=== PATIENT | female | born 1980 | race American Indian/Alaskan Native ===

== ENCOUNTER 2018-03-26 08:01 | Day surgery (SDC) | payer BC ==
[~2018-03-26 08:01] MED LIST: DIPRIVAN 10 MG/ML IV ONE; NACL 0.9% 1000 ML 1,000 ML IV SCH; WATER FOR IRRIG STERILE IR ONE; WATER FOR IRRIG STERILE ONE; XYLOCAINE 2% INFILTRATI ONE; ePHEDrine 50 MG/5 ML-0.9% NACL IV ONE
[2018-03-26] MEDS ORDERED: DIPRIVAN 10 MG/ML IV ONE ×2 (08:59→09:01)
[2018-03-26 10:04] VITALS: BP 119/77
--- NOTE | 2018-03-26 12:01 | Procedure Note ---
Date of procedure: 03/26/18 Pre-op diagnosis: Iron deficency anemia Post-op diagnosis: same Procedure: 1) EGD 2) Colonoscopy to cecum Description of procedure: Pt was positioned left side down. MAC was administered. Bite block was placed between her incisors. Endoscope was introduced into the oropharynx and the esophagus intubated under direct vision. Examination of the esophagus, stomach and 1st and 2nd portions of the duodenum was performed. This included a retroflexed view of the GE junction and fundus. No source of the pt's anemia was found. Insufflated air was aspirated and the scope was withdrawn. The GI stretcher was re-positioned and the colonoscope was inserted into the pt' s rectum. The scope was advanced retrograde while directly visualizing the colon lumen. The prep was marginal with portions of the colon not seen b/o residual liquid and semi-solid stool. Once the cecum was identified, the scope was slowly withdrawn with careful circumferential visualization of the colonic lumen. Again, no source of the pt's anemia was identified. A retroflexed view of the distal rectum was performed prior to withdrawing the scope and this too was unrevealing. Pt tolerated both procedures well. She was recovered in the GI suite. Findings: Normal EGD and colonoscopy to cecum Anesthesia: MAC Surgeon: URIEL DEL ROSARIO Estimated blood loss: none Pathology: none Condition: stable Disposition: no change
== END 2018-03-26 08:02 | disposition home or self-care (01) ==
LOC: GIO 08:01
PROVIDERS: ATTEND Surgery
DX: D50.9 Iron deficiency anemia, unspecified (principal); E66.9 Obesity, unspecified; Z68.30 Body mass index [BMI] 30.0-30.9, adult; Z98.890 Other specified postprocedural states
CPT/HCPCS: 43235; 45378; 81025; J2704; J7030

== ENCOUNTER 2018-04-04 05:56 | Day surgery (SDC) | payer BC ==
--- NOTE | 2018-04-04 07:44 | Anesthesia Consultation ---
Anesthesia Consult and Med Hx Date of service: 04/04/18 - Airway Anesthetic Teeth Evaluation: Good ROM Head & Neck: Adequate Mental/Hyoid Distance: Adequate Mallampati Class: Class II Intubation Access Assessment: Good - Pulmonary Exam CTA: Yes - Cardiac Exam Cardiac Exam: No Murmur - Pre-Operative Health Status ASA Pre-Surgery Classification: ASA1 - Central Nervous System Hx Psychiatric Problems: No - Gastrointestinal Hx Ulcer: Yes - Other Systems Hx Alcohol Use: No Hx Substance Use: No Hx Cancer: No
--- NOTE | 2018-04-04 07:44 | Anesthesia Day of Surgery ---
Anesthesia Day of Surgery - Day of Surgery Patient Examined: Yes Patient H&P Reviewed: Yes Patient is NPO: Yes
[2018-04-04] MEDS ORDERED: XYLOCAINE MPF 2% ONE (07:59)
[2018-04-04] MEDS ORDERED: SUBLIMAZE ONE (07:59)
[2018-04-04] MEDS ORDERED: DIPRIVAN 10 MG/ML IV ONE (07:59)
[2018-04-04] MEDS ORDERED: NACL BACTERIOSTATIC INFILTRATI ONE (07:59)
[2018-04-04] MEDS ORDERED: ZEMURON IV ONE (07:59)
[2018-04-04] MEDS ORDERED: PEPCID PO NR (08:00)
[2018-04-04] MEDS ORDERED: VERSED IV NR (08:00)
[2018-04-04] MEDS: LACTATED RINGERS 1,000 ML IV SCH ×2 (08:09→13:00)
[2018-04-04] MEDS ORDERED: ZOFRAN ONE (08:13)
[2018-04-04] MEDS ORDERED: DECADRON ONE (08:13)
[2018-04-04] MEDS ORDERED: MARCAINE-EPI 0.5%-1:200,000 INFILTRATI ONE ×2 (08:17→09:16)
[2018-04-04] MEDS ORDERED: ANCEF/STERILE WATER 2 GM/20 ML IV NR (08:30)
[2018-04-04] MEDS ORDERED: HEPARIN SUB-Q NR (08:30)
[2018-04-04] MEDS ORDERED: NACL 0.9% IR ONE (09:16)
[2018-04-04] MEDS ORDERED: DILAUDID ONE (09:31)
[2018-04-04] MEDS ORDERED: BLOXIVERZ ONE (09:51)
[2018-04-04] MEDS ORDERED: ROBINUL ONE (09:51)
[2018-04-04] MEDS ORDERED: TORADOL ONE (10:00)
[2018-04-04] MEDS: DILAUDID IV PRN ×2 (10:30→10:45)
[2018-04-04] MEDS ORDERED: PERCOCET 5/325 PO PRN (11:00)
--- NOTE | 2018-04-04 11:01 | Post Operative Note ---
Pre-op diagnosis: Incarcerated epigastric hernia Post-op diagnosis: same Findings: Incarcerated omentum Procedure: Open repair with large Ventralex mesh Anesthesia: PHYLLIS Surgeon: URIEL DEL ROSARIO Estimated blood loss: minimal Pathology: list (Hernia sac) Specimen disposition: to lab Condition: stable Disposition: PACU
[2018-04-04 13:41] VITALS: BP 130/79
--- NOTE | 2018-04-04 14:36 | Post Anesthesia Evaluation ---
- Post Anesthesia Evaluation Patient Participated: Yes Airway Patent: Yes Stable Respiratory Function: Yes Nausea/Vomiting: No Temp > 96.8F: Yes Pain Manageable: Yes Adequeate Hydration: Yes Anesthesia Complications: No
--- NOTE | 2018-04-10 08:36 | Procedure Note ---
Date of procedure: 04/04/18 Pre-op diagnosis: Incarcerated epigastric hernia Post-op diagnosis: same Procedure: Open repair with mesh Description of procedure: Pt was placed supine on the OR table. GETA was administered. Abdomen was prepped and draped. Skin and SQ tissue over the hernia were incised. The hernia sac was identified and was dissected down to it 's fascial margins. Sac was opened and was found to contain incarcerated omentum. The omentum was freed from the hernia sac and was reduced back into the peritoneal cavity. The hernia sac was excised at the level of the fascia. The defect was closed with a large piece of Ventralex mesh with simultaneous fixation of the mesh and closure of the fascial defect with interrupted sutures of 0-Ethibond. Subcutaneous tissue was approximated with a running suture of 3- 0 Vicryl. Skin was closed with a running, subcuticular suture of 4-0 Monocryl. Skin glue was applied followed by a Telfa pad and tape. Pt tolerated the procedure well. She was extubated in the OR and was taken to PACU in stable condition. Findings: Incarcerated omentum Anesthesia: GETA Surgeon: URIEL DEL ROSARIO Estimated blood loss: minimal Pathology: list (Hernia sac) Specimen disposition: to lab Condition: stable Disposition: PACU
== END 2018-04-04 14:44 | disposition home or self-care (01) ==
LOC: OR 05:56
PROVIDERS: ATTEND Surgery
DX: K43.6 Other and unspecified ventral hernia with obstruction, without gangrene (principal)
CPT/HCPCS: 49561; 49568; 81025; 88302; C1781; J0690; J1100; J1170; J1644; J1885; J2250; J2405; J2704; J2710; J3010; J7120